=== PATIENT | female | born 1960 | race Two or more races ===

== ENCOUNTER → 2024-09-03 | Outpatient (CLI) | payer OTHER, MEDICAID, SELFPAY ==
--- NOTE | 2024-09-03 11:50 | XR_ITS ---
Examination: Hand, right 3 views Technique: Hand AP, oblique, lateral 3 views Date and time of exam: September 03, 2024 1203 hours INDICATIONS: Right hand pain especially first digit beginning 3-4 years ago FINDINGS: Moderate osteopenia Mild to moderate osteoarthritis radiocarpal and first carpometacarpal joints Mild to moderate osteoarthritis distal interphalangeal joints No fracture or cortical bone destruction IMPRESSION: [id number] osteoarthritis as above
== END | disposition home or self-care (01) ==
PROVIDERS: PCP Specialist; Referring Provider Specialist; Visit Provider Specialist
DX: M19.041 Primary osteoarthritis, right hand (principal)
CPT/HCPCS: 73130

== ENCOUNTER → 2024-12-30 | Outpatient (CLI) | payer OTHER, MEDICAID, SELFPAY ==
--- NOTE | 2024-12-30 | XR_ITS ---
Examination: Steroid injection right first carpometacarpal joint with imaging guidance Fluoroscopy AP right hand single view. Exam date and time: December 30, 2024 1348 hours INDICATIONS: Right thumb pain osteoarthritis right first carpometacarpal joint months Informed consent provided. Technique: A timeout was completed verifying correct patient, procedure, site, positioning. The patient was placed in supine position appropriate for the steroid injection The patient's site was prepped and draped in sterile fashion 5 cc 1% lidocaine administered locally for anesthesia. Sterile drape applied, maximum barrier sterile technique. Utilizing fluoroscopic guidance, 23-gauge needle placed in the right first carpometacarpal joint 1 cc Kenalog 40 introduced into the right first carpometacarpal joint The patient was in satisfactory and stable condition on completion of the procedure Attending radiologist was present for the entire procedure Estimated blood loss 0 cc. Impression: Successful steroid injection right first carpometacarpal joint with imaging guidance Fluoroscopy 0.3 minute radiation dose 24 0 milligray 1 spot fluoroscopic right hand film
--- NOTE | 2024-12-30 | XR_ITS ---
Examination: Steroid injection right first metacarpal phalangeal joint with imaging guidance Fluoroscopy AP right hand single view INDICATIONS: Right thumb pain months. Exam date and time: December 30, 2024 1352 hours Informed consent provided. Technique: A timeout was completed verifying correct patient, procedure, site, positioning. The patient was placed in supine position appropriate for the steroid injection The patient's site was prepped and draped in sterile fashion 5 cc 1% lidocaine administered locally for anesthesia. Sterile drape applied, maximum barrier sterile technique. Utilizing fluoroscopic guidance, 23-gauge needle placed in the right first metacarpal phalangeal joint 1 cc Kenalog 40 introduced into the right first metacarpal phalangeal joint The patient was in satisfactory and stable condition on completion of the procedure Attending radiologist was present for the entire procedure Estimated blood loss 0 cc. Impression: Successful steroid injection right first metacarpal phalangeal joint with imaging guidance Fluoroscopy 0.3 minute radiation dose 0.40 milligray 1 spot fluoroscopic and film .
--- NOTE | 2024-12-30 13:00 | XR_ITS ---
Examination: Steroid injection right radiocarpal joint with imaging guidance Fluoroscopy AP right wrist single view INDICATIONS: Right wrist osteoarthritis pain months. Exam date and time: December 30, 2024 1301 hours Informed consent provided. Technique: A timeout was completed verifying correct patient, procedure, site, positioning. The patient was placed in supine position appropriate for the steroid injection The patient's site was prepped and draped in sterile fashion 5 cc 1% lidocaine administered locally for anesthesia. Sterile drape applied, maximum barrier sterile technique. Utilizing fluoroscopic guidance, 23-gauge needle placed in the radiocarpal joint 1 cc Kenalog 40 \introduced into the radiocarpal joint The patient was in satisfactory and stable condition on completion of the procedure Attending radiologist was present for the entire procedure Estimated blood loss 0 cc. Impression: Successful steroid injection right radiocarpal joint with imaging guidance Fluoroscopy 0.3 minute radiation dose 0.40 milligray 1 spot fluoroscopic wrist film .
== END | disposition home or self-care (01) ==
LOC: SIRX 12:36
PROVIDERS: PCP Specialist; Referring Provider Specialist; Visit Provider Specialist
DX: M18.11 Unilateral primary osteoarthritis of first carpometacarpal joint, right hand (principal)
CPT/HCPCS: 20600 ×2; 20605; 77002

== ENCOUNTER → 2025-08-23 | Outpatient (CLI) | payer MEDICAID, SELFPAY ==
--- NOTE | 2025-08-23 12:03 | XR_ITS ---
Examination: Knee bilateral, 6 views Technique: Knee AP, lateral, oblique each knee total 6 views Date and time of exam: August 23, 2025, 1310 hours INDICATIONS: Patient fell 5 years ago with injury of both knees, bilateral knee pain. FINDINGS: Significant osteopenia Bilateral advanced tricompartment osteoarthritis No acute fractures No foreign bodies Small bilateral knee effusions IMPRESSION: Bilateral advanced tricompartment osteoarthritis
--- NOTE | 2025-08-23 12:03 | XR_ITS ---
EXAMINATION: Bilateral AP knee single view TECHNIQUE: AP bilateral standing knees single view Date and time: August 23, 2025, 1310 hours INDICATION: Bilateral knee pain after falling 5 years ago. FINDINGS: Significant osteopenia No fractures Advanced arthritis medial lateral joint spaces bilaterally IMPRESSION: Advanced bilateral osteoarthritis
== END | disposition home or self-care (01) ==
LOC: CDIM 11:58
PROVIDERS: PCP Specialist; Referring Provider Specialist; Visit Provider Specialist
DX: M17.0 Bilateral primary osteoarthritis of knee (principal)
CPT/HCPCS: 73562; 73564; 73565

== ENCOUNTER 2025-09-07 10:13 | Outpatient (AMB) | payer MEDICAID, SELFPAY ==
--- NOTE | 2025-09-07 10:43 | ORTHONT_ITS ---
Vital signs 09/07/25 10:45 Height 1.6 m Height Method Measured Weight 66.933 kg Weight Measurement Method Standing Scale BMI 26.1 BP 208/115 H Blood Pressure Source Automatic Cuff Blood Pressure Location Right Upper Arm Position Sitting Respiration 18 Pulse 75 Pulse Source Monitor Temp 98.2 F Temp Source Temporal Artery Scan Pulse Oximetry (%) 96 Oxygen Delivery Method Room Air Med/Allergies Allergies & Medications Allergies NKA* Allergy (Uncoded 09/07/25 10:49) Medication Reconciliation Unobtainable 09/07/25 [History Confirmed 09/07/25] Exam Exam Patient is in no acute distress and is cooperative with the examination today. Breathing is nonlabored. Patient has a normal mood and affect. Bilateral extremities were evaluated and demonstrates sensation intact to light touch. Palpable pedal pulses are present. No significant edema is present. Bilateral hips were examined. The patient has no pain with log roll of the hips. Internal rotation to 30 degrees and external rotation to 30 degrees is painless. Negative FADIR. Right knee was examined today. The right knee is in reasonable alignment. Range of motion from 0-120 degrees. Knee is stable to varus and valgus as well as AP translation with <5mm. Patient has a negative McMurrays. There is no pain with patellofemoral compression and no crepitus noted. The knee is nontender to palpation. Left knee was examined today. The left knee is in valgus alignment. Range of motion from 0-115 degrees. Knee is stable to varus and valgus as well as AP translation with <5mm. Patient has a negative McMurrays. There is no pain with patellofemoral compression and no crepitus noted. The knee is tender to palpation laterally X-rays of the left knee that are weightbearing demonstrate complete joint space narrowing laterally with valgus deformity Assessment and Plan Problem List (1) Arthritis of left knee: Status: Acute Plan: ASSESSMENT AND PLAN 1. Bilateral knee pain: She has been experiencing bilateral knee pain for about 10 years, with the left knee being worse. Recent x-rays show severe arthritis in the left knee, described as [id number], and moderate arthritis in the right knee. She has received 2 cortisone injections in the past, which provided temporary relief but are no longer effective. She is currently taking meloxicam 15 mg and ibuprofen, which are not helping. Physical therapy has not been pursued. Given the severity of her symptoms and the impact on her daily life, a total knee replacement surgery is recommended. The medical billing associate will provide a detailed discussion about the surgery. The left knee is worse than the right we discussed total knee replacement on the left The nature and purpose of the total knee replacement, alternative method(s) of treatment, the material risks involved, and the possibility of complications were fully explained to the patient. The patient does NOT have any of the following contraindications to TKA: - Active infection of the knee joint, OR - Active systemic bacteremia, OR - Active skin infection or open wound at surgical site, OR - Neuropathic arthritis, OR - Severe, rapidly progressive neurological disease, OR - Severe medical condition that makes risks of surgery outweigh the potential benefit The patient was told the most common risks and complications associated with a total knee replacement include, but are not limited to: blood clots in the leg, fatal pulmonary embolism, dislocation of the prosthesis, intraoperative and postoperative fractures of the femur or tibia, infection, failure of the prosthesis or grafting materials, complications from anesthesia, reactions to blood transfusions, postoperative leg length inequality, instability of the knee replacement, nerve damage or injury, vascular injury, delayed wound healing, infection, other injury or even . In addition, there are risks associated with anesthesia given during this operation. Also, the patient was told that after undergoing a total knee replacement there may still be persistent pain or disability. The patient was informed that the success of this operation in part depends upon the mechanical devices which are going to be implanted and that these devices can fail or malfunction, and may need to be repaired or replaced and there are no guarantees as to the longevity of this device or its parts and that it or its parts could fail prematurely. The patient was also notified that during the course of surgery, there may be a need to use bone graft from donors, and that any bone graft used will be carefully screened for communicable diseases, including AIDS, hepatitis, Olivier-Creutzfeldt, or other diseases, but despite the screening procedures, there is a small chance that they could contract one of these diseases. Finally, the patient was asked to follow completely and fully with all advice and recommended treatments, and that recovery and ultimate outcome are affected by their compliance with recommended treatment. We discussed the risks, benefits and treatment alternatives, and the patient is interested in proceeding with surgery. We will try to set this up as expeditiously as possible. 2. Diabetes mellitus: Her last A1c was 7.6, and she has been working on better control of her diabetes. The goal is to maintain an A1c below 8. Continue current diabetes management and monitor A1c regularly to ensure it remains below 8. 3. Hypertension: She is on 2 blood pressure medications. Her blood pressure was noted to be high during the visit, likely due to anxiety. Continue current antihypertensive medications and monitor blood pressure regularly. Address anxiety management to help control blood pressure during medical visits. Office Procedures GNS Level of Care Nursing/Assessment Patient Status: Initial/New Patient Nursing Assessment/Reassesment: Medication Reconciliation, Update PMH in EMR and Vital Signs Coordination of Care: Complex Care and Chronic Disease 1-5, Education Complex Pt/Fam, Consent,records obtained, informed consent, Lab and Imaging orders, Results/Orders obtained and Staff clarify orders Special Needs: Language special needs New Patient Charge New Patient Point Assignment: [id number] New Patient Point Charge: ARTIST AND REPERTOIRE MANAGER Level 3 ([id number]) MA Intake Visit Data Collection New Patient or Established: Established Patient (seen at [facility] within 3 years) Reason for Visit:: OSTEOARTHRITIS BILATERAL KNEE PAIN Seen by Clinical Staff ONLY (RN/MA): No Diamond Die Polisher Required: No PCP or OBGYN visit in last 3 months: Yes Hx Now: No Do You Feel Safe at Home: Yes Authorities Contacted: N/A Questionairres Past Medical History Past Medical History Have you ever been diagnosed with any of the following: Subjective Visit Visit for: new patient, follow up visit and knee Immunization / Flu Flu Vaccine in the Last 12 Months: Yes Flu Vaccine Exclusion Criteria: Already Received History of Present Illness Chief complaint: OSTEOARTHRITIS BILATERAL KNEE PAIN Date of injury / onset of symptoms: 10 YEARS AGO HISTORY OF PRESENT ILLNESS I, Boris Augustin, have obtained verbal consent from the patient, to be recorded during this encounter which may include, but not limited to, medical history, examination, treatment plans, and relevant health information.? Patient was informed that recording will be read and reviewed by myself before inclusion in the medical chart. The patient is a 65-year-old female who presents for evaluation of bilateral knee pain. She is accompanied by a distribution driver. She has been experiencing bilateral knee pain for approximately 10 years. She has received 2 cortisone injections, which provided some relief, but her knees occasionally pop and feel weak. She has not undergone physical therapy. She is currently taking meloxicam 15 mg and ibuprofen, but these medications are not helping. The left knee is more problematic than the right. She received one cortisone injection from Dr. Fox at [facility] in [place], and another over 6 months ago. The most recent injection provided temporary relief, but she continues to experience significant pain and swelling. Her daily activities are severely impacted due to the pain, particularly when attempting to get into bed or stand up after sitting for more than 10 minutes. She also reports instances of her knee locking, necessitating support from nearby objects. She has tried various treatments including medications and injections. She is considering surgical intervention as a potential solution. She previously worked in a [employer], which required prolonged standing for 14-hour shifts, but she has since retired due to her knee condition. She has diabetes. Her last A1c was 7.6, but she has been working more on her [employer] and it has been better controlled. She has hypertension. She gets really nervous when she comes to the doctor, so her blood pressure was pretty high when she came in, but she does take 2 blood pressure medications. Personal History Occupation: RETIRED Red flag PMH: none BMI Counceling provided: Yes Pain Pain level (0-10): 9 Pain location: inside (medial), outside (lateral), anterior and posterior Pain quality: sharp Pain timing: increases with activity and stairs Associated signs & symptoms: weakness and stiffness Ambulatory data Ambulatory device: none Walking distance (minutes): 10 Treatments Number of previous injections: 2 Improvement with previous injections: No Number of Physical Therapy sessions: 0 Improvement with PT: No Improvement with NSAIDS: no Review of Systems Review of Systems: All systems negative unless otherwise noted in HPI.
[2025-09-07 10:45] VITALS: BP 208/115; PULSE 75; RESP 18; TEMP 36.8; O2SAT 96; BMI 26.1
== END 2025-09-07 11:01 | disposition home or self-care (01) ==
LOC: HODSRG 10:13
PROVIDERS: PCP Nurse Practitioner Family; Referring Provider Nurse Practitioner Family; Supervising Provider Orthopaedic Surgery Adult Reconstructive Orthopaedic Surgery; Visit Provider Orthopaedic Surgery Adult Reconstructive Orthopaedic Surgery
DX: M17.12 Unilateral primary osteoarthritis, left knee (principal); M25.562 Pain in left knee; M25.561 Pain in right knee; E11.9 Type 2 diabetes mellitus without complications; I10 Essential (primary) hypertension
CPT/HCPCS: 99203; G0463